=== PATIENT | male | born 1955 | race Caucasian/White ===

== ENCOUNTER 2025-01-06 18:02 | Emergency (ER) | payer MEDICARE, OTHER, SELFPAY ==
[2025-01-06 18:07] VITALS: BP 143/83
[2025-01-06 18:54] VITALS: BMI 24.9
[2025-01-06 19:00] LABS: % Basophils 0.5 % (0-2); % Eosinophils 1.4 % (0-6); % Lymphocytes 17.3 % (20.5-51.1); % Monocytes 7.4 % (1.7-9.3); % Neutrophils 72.4 % (42.2-75.2); Absolute Eosinophils 0.1 10^3/uL (0-0.7); Absolute Immature Granulocytes 0.1 10^3/uL (0-0.05); Absolute Lymphocytes 1.5 10^3/uL (1.2-3.4); Absolute Monocytes 0.6 10^3/uL (0.1-0.6); Absolute Neutrophils 6.3 10^3/uL (1.4-6.5); Hematocrit 25.4 % (39.0-52.0); Hemoglobin 9.1 g/dL (13.0-18.0); Mean Corp Hgb Conc. 35.8 g/dL (33.0-37.0); Mean Corpuscular Hgb 30.4 pg (27.0-31.0); Mean Corpuscular Volume 84.9 fL (80.0-94.0); Mean Platelet Volume 8.3 fL (7.4-10.4); Nucleated Red Blood Cells % 0 % (-); Platelet Count 315 10^3/uL (130-400); Red Blood Cell Count 2.99 10^6/uL (4.70-6.10); Red Cell Dist. Width 13.6 % (11.5-14.5); White Blood Cell Count 8.7 10^3/uL (4.8-10.8)
[2025-01-06 19:08] VITALS: BP 170/84
--- NOTE | 2025-01-06 19:13 | ED.GENMED ---
History of Present Illness
General
Chief Complaint: Weakness
Time Seen by Provider: 01/06/25 19:13
History of Present Illness
History of Present Illness:
TIME OF INITIAL EVALUATION
- 7:20 PM
REVIEW OF OLD RECORDS
- Patient has history of high blood pressure and hyperlipidemia. The patient had a visit for obstructive sleep apnea in January 2020 and had cardioversion for A-fib also in 2019.
Note:
CHIEF COMPLAINT(S)
Altered mental status.
HISTORY OF PRESENT ILLNESS
A male patient with a history of alcohol use reports experiencing altered mental status over the past two months, with a noted rapid decline in the last two weeks. According to sons that I spoke to at bedside, the patient has been consuming alcohol
despite a history of a significant familial loss. It was observed that the patient has been confused and recently experienced a fall. He reportedly attempted to quit alcohol consumption abruptly two weeks ago, though he still consumes occasionally.
Family members report that he was confused and had a history of falls, according to his neighbor. In the emergency department, the patient appears tired but is oriented to person, place, and time. He acknowledges feeling 'out of it.'
ADDITIONAL HISTORY OBTAINED FROM SOURCES OTHER THAN THE PATIENT
According to a family member, there was a rapid decline in the patients mental status over the last two weeks. The neighbor reported witnessing the patient falling.
PHYSICAL EXAM
- General: Patient appears lethargic, body odor noted.
- Extremities: Able to lift legs on command.
- General: Well appearing in no distress
- HEENT: Dry oral mucosa
- Cardiovascular: No murmurs, normal heart rate, regular rhythm, No chest wall tenderness
- Pulmonary: No respiratory distress, breath sounds are clear and equal
- Abdomen: Soft with no peritoneal signs, no tenderness
- Neurologic: Fair strength all extremities, no coordination deficits
- Psychiatric: Reasonable insight and judgement, he knows he is at [facility] and knows that his GI
- Extremities: Nontender, no edema, moves all extremities equally
- Skin: No rash, no lesions
SOCIAL DETERMINANTS AFFECTING HEALTH
The patient has a history of smoking but has not smoked recently, at least in the last several weeks.
PROBLEM LIST
- Acute: Altered mental status, falls, potential alcohol withdrawal.
- Chronic: Alcohol use disorder.
PLAN
Initiate intravenous fluids and review laboratory results upon availability. Replace potassium orally and also check magnesium and alcohol levels. Also check troponin as EKG is abnormal however the patient has no chest pain
DIFFERENTIAL DIAGNOSIS
The Differential Diagnosis includes, in no particular order and is not limited to:
- Alcohol withdrawal syndrome
- Delirium tremens
- Traumatic head injury
- Urinary tract infection
- Electrolyte imbalances
- Hepatic encephalopathy
- Wernickes encephalopathy
- Cerebrovascular accident
- Neurocognitive disorder due to substance use
- Metabolic encephalopathy
RADIOLOGY
- CT brain obtained shows no acute intracranial abnormality however new right nasal bone fracture is noted in comparison to 2019
EKG
- Sinus 109, LVH, new inferior Q waves with ST elevation
LABS
- Hemoglobin 9.1 down from 10.3 in 2020, white count normal, sodium slightly low at 130, potassium 3.2, magnesium slightly low at 1.5, troponin less than 0.012, alcohol undetected
UPDATE
- We did give his usual dose of oxcarbazepine while in the emergency department.
SUMMARY OF ENCOUNTER
The patient presented with altered mental status and a history of recent falls. He has a known history of alcohol use disorder. An EKG and cardiac blood work were performed with no significant findings. A CT scan of the brain showed no signs of
bleeding or critical issues. The patient showed improvement with intravenous fluids, suggesting possible dehydration. There was also noted swelling in the feet, potentially due to age-related venous insufficiency or immobility.
DISPOSITION
The patient is deemed suitable for discharge with outpatient follow-up advised.
EMERGENCY TREATMENTS ADMINISTERED
Intravenous fluids were administered.
PLAN
The patient was given intravenous fluids for possible dehydration. Recommendations were made for outpatient alcohol cessation support through a local program.
MEDICATION RECONCILIATION
Checked and confirmed zero alcohol content levels upon testing.
MEDICAL DECISION MAKING
1. Number & Complexity of Problems: Acute altered mental status suspected to be related to alcohol withdrawal or dehydration; no critical findings on brain imaging. Chronic alcohol use disorder affects care.
2. Data Reviewed: Category 1 - EKG, cardiac markers (negative for heart attack), brain CT (negative for bleeding).
3. Risk: Consideration was given to potential admission due to complexity, but outpatient management was deemed appropriate based on stable vitals, improvement with fluids, and the patients orientation and understanding of his medical situation.
DIAGNOSIS
Suspected dehydration and altered mental status potentially related to alcohol use disorder and withdrawal. Chronic alcohol use disorder.
PATHOLOGIES TO CONSIDER
- Alcohol withdrawal syndrome
- Traumatic head injury
- Electrolyte imbalances
I have asked Carlos GOODMAN, to evaluate the patient and he will come over shortly
Past History
Past History
ED Past Medical History: HTN, Hypercholesterolemia, Seizures, Other (Carotid stenosis) and Other (seizure)
ED Past Surgical History: Orthopedic
Social History
Tobacco: Non-smoker
Phy Exam
Physical Exam
Physical Exam:
See HPI
Course
Orders/Labs/Results
Orders:
Orders
01/06/25 18:10
Electrocardiogram (*1) Urgent
Reason for Study: Fatigue / Weakness
CT Head W/o Iv Contrast Urgent
Comment:
Reason For Exam: fall, headstrike, unknown thinners
01/06/25 18:11
EKG- Treatment ONCE
01/06/25 18:51
Alcohol Urgent
Complete Blood Count/With Diff Urgent
Comprehensive Metabolic Panel Urgent
Magnesium Urgent
Comment: ADD ON
01/06/25 19:30
Add On- LAB Urgent
Tests Added?: alcohol
01/06/25 19:32
Add On- LAB Urgent
Tests Added?: troponin
01/06/25 19:34
0.9% Sodium Chloride 1000 ml [Nss] 1,000 ml IV BOLUS
Potassium Chloride Powder [Klor-Con] 40 meq PO NOW STA
01/06/25 19:37
Add On- LAB Urgent
Tests Added?: magnesium
01/06/25 19:42
Troponin I Urgent
01/06/25 20:29
Oxcarbazepine [Trileptal] 600 mg PO NOW STA
Abnormal Lab Results
01/06/25
18:51
RBC 2.99 L 10^6/uL
(4.70-6.10)
Hgb 9.1 L g/dL
(13.0-18.0)
Hct 25.4 L %
(39.0-52.0)
Abs Immat Gran (auto) 0.1 H 10^3/uL
(0-0.05)
Immature Gran % 1.0 H %
(0-0.5)
Lymphocytes % 17.3 L %
(20.5-51.1)
Sodium 130 L mmol/L
(135-145)
Potassium 3.2 L mmol/L
(3.5-5.1)
Chloride 92 L mmol/L
(98-107)
Magnesium 1.5 L mg/dl
(1.6-2.3)
01/06/25 18:51
01/06/25 18:51
Vital Signs
Initial and Last Documented VS:
Initial Vital Signs
Temp Pulse Resp BP Pulse Ox
36.6 C 110 16 143/83 98
01/06/25 18:07 01/06/25 18:07 01/06/25 18:07 01/06/25 18:07 01/06/25 18:07
Last Documented Vital Signs
Temp Pulse Resp BP Pulse Ox
37.1 C 89 13 173/80 98
01/06/25 18:54 01/06/25 20:00 01/06/25 20:00 01/06/25 20:00 01/06/25 20:00
*Pulse Oximetry
SaO2: 100
Oxygen Mode of Delivery: Room air
Patient hypoxic: no
*Critical Care Note
Total Time (30-74mins, 75-104mins- exclusive of procedures): Not Applicable
ED Attending Note
-
Portions of this chart may have been created with voice recognition software.� Occasional wrong word or��sound alike� substitutions may have occurred due to the inherent limitations of voice recognition software.
Discharge Plan
Departure
Prescriptions:
No Action
aspirin 81 MG tablet,delayed release (DR/EC)
81 mg PO HS
spironolactone 25 MG tablet
25 mg PO DAILY
simvastatin 20 MG tablet
20 mg PO HS
oxcarbazepine 600 MG tablet
600 mg PO HS
terazosin 10 MG capsule
10 mg PO HS
oxcarbazepine 300 MG tablet
300 mg PO DAILY Qty: 60 0RF
amlodipine [Norvasc] 10 MG tablet
10 mg PO DAILY
losartan 50 MG tablet
50 mg PO HS
furosemide 40 mg Tablet
40 mg PO DAILY
clonidine HCl 0.1 mg Tablet
0.1 mg PO TID
carvedilol 12.5 mg Tablet
12.5 mg PO BID
Eliquis 5 mg Tablet
5 mg PO BID
Referrals:
UNKNOWN - PT DOES,NOT KNOW [Family Provider]
Interventions
Interventions:
*Risk Screen - Suicide Last Done: 01/06/25 19:05
*General Assessment Last Done: 01/06/25 19:05
*Neglect/Abuse Screening Last Done: 01/06/25 19:05
*ED- Fall Risk Assessment Last Done: 01/06/25 19:05
*ED COVID-19 Vaccine History Last Done: 01/06/25 19:05
ED- Cardiac Assessment Last Done: 01/06/25 19:05
ED- Neurological Assessment Last Done: 01/06/25 19:05
ED- Pulmonary Assessment Last Done: 01/06/25 19:05
Discharge Date and Time
Print Language: SAMOAN
--- NOTE | 2025-01-06 19:14 | PHANOTE ---
01/06/2025, pt. obtunded at time of interview; pt. manages his own meds.; sons at bedside do not know pt.'s meds.; ecw records and most of pharmacy records are outdated; could not confirm med. list.
[2025-01-06 19:23] LABS: ALT (SGPT) < 10 U/L (0-50); AST (SGOT) 18 U/L (17-59); Alkaline Phosphatase 113 U/L (38-126); Blood Urea Nitrogen 19 mg/dl (9-20); Calcium 9.1 mg/dl (8.4-10.2); Carbon Dioxide 22 mmol/L (22-30); Chloride 92 mmol/L (98-107); Estimated Creatinine Clearance 80 ml/min; Glucose 87 mg/dl (70-99); Potassium 3.2 mmol/L (3.5-5.1); Sodium 130 mmol/L (135-145); Total Bilirubin 0.9 mg/dl (0.2-1.3); Total Protein 6.9 g/dl (6.3-8.2); eGFR > 60.00
[2025-01-06] MEDS: KLOR-CON 40 MEQ PO (19:39)
[2025-01-06] MEDS: NSS 1000 IV (19:41)
[2025-01-06 19:44] LABS: Alcohol None Detected
[2025-01-06 19:50] LABS: Magnesium 1.5 mg/dl (1.6-2.3)
[2025-01-06 20:00] VITALS: BP 173/80
[2025-01-06 20:17] LABS: Troponin I < 0.012 ng/ml
[2025-01-06] MEDS: TRILEPTAL 600 MG PO (20:33)
[2025-01-06 21:00] VITALS: BP 154/97
== END 2025-01-06 22:00 | disposition home or self-care (01) ==
LOC: EMR 18:02
PROVIDERS: Emergency Medicine; EMERGENCY PHYSICIAN Emergency Medicine
DX: R53.1 Weakness (principal); E78.00 Pure hypercholesterolemia, unspecified; G47.33 Obstructive sleep apnea (adult) (pediatric); E87.8 Other disorders of electrolyte and fluid balance, not elsewhere classified; F10.239 Alcohol dependence with withdrawal, unspecified; I11.9 Hypertensive heart disease without heart failure; I48.91 Unspecified atrial fibrillation
CPT/HCPCS: 99284; 96360; 70450; 80053; 82077; 83735; 84484; 85025; 93005

== ENCOUNTER 2025-01-13 08:26 | Inpatient (IN) | payer MEDICARE, OTHER, SELFPAY ==
[2025-01-12] VITALS (12 sets, daily range): BP systolic 81–189; BP diastolic 41–123; BMI 23.1; BMI 21.7
[2025-01-12 09:12] LABS: % Basophils 0.4 % (0-2); % Eosinophils 1.2 % (0-6); % Immature Granulocytes 0.5 % (0-0.5); % Lymphocytes 16.9 % (20.5-51.1); % Monocytes 10.1 % (1.7-9.3); % Neutrophils 70.9 % (42.2-75.2); Absolute Eosinophils 0.1 10^3/uL (0-0.7); Absolute Immature Granulocytes 0.1 10^3/uL (0-0.05); Absolute Lymphocytes 1.6 10^3/uL (1.2-3.4); Absolute Neutrophils 6.8 10^3/uL (1.4-6.5); Hematocrit 25.8 % (39.0-52.0); Mean Corp Hgb Conc. 34.9 g/dL (33.0-37.0); Mean Corpuscular Hgb 29.3 pg (27.0-31.0); Mean Platelet Volume 8.8 fL (7.4-10.4); Nucleated Red Blood Cells % 0 % (-); Platelet Count 380 10^3/uL (130-400); Red Blood Cell Count 3.07 10^6/uL (4.70-6.10); Red Cell Dist. Width 13.7 % (11.5-14.5); White Blood Cell Count 9.6 10^3/uL (4.8-10.8)
[2025-01-12 09:28] LABS: ALT (SGPT) 11 U/L (0-50); AST (SGOT) 30 U/L (17-59); Albumin 3.5 g/dl (3.5-5.0); Alkaline Phosphatase 101 U/L (38-126); Blood Urea Nitrogen 11 mg/dl (9-20); Calcium 8.9 mg/dl (8.4-10.2); Carbon Dioxide 26 mmol/L (22-30); Chloride 95 mmol/L (98-107); Estimated Creatinine Clearance 105 ml/min; Glucose 96 mg/dl (70-99); Potassium 3.9 mmol/L (3.5-5.1); Sodium 128 mmol/L (135-145); Total Bilirubin 0.9 mg/dl (0.2-1.3); Total Protein 6.4 g/dl (6.3-8.2); eGFR > 60.00
[2025-01-12] MEDS: NSS 1000 IV (11:45)
[2025-01-12 11:53] LABS: Urine Albumin 2+ (Neg - Trace); Urine Bilirubin 1+ (Negative); Urine Character Clear (Clear); Urine Color Yellow; Urine Glucose Negative (Negative); Urine Ketone Negative (Negative); Urine Leukocyte 1+ (Negative); Urine Nitrite Negative (Negative); Urine Occult Blood Negative (Negative); Urine Urobilinogen 2+ (Neg - 1+)
[2025-01-12 12:03] LABS: Creatine Phosphokinase 53 U/L (55-170)
[2025-01-12 12:07] LABS: Alcohol None Detected
[2025-01-12 12:11] LABS: COVID-19 Antigen Negative (Negative)
[2025-01-12 12:15] LABS: Troponin I < 0.012 ng/ml
[2025-01-12 12:35] LABS: TSH Reflex To Free T4 3.01 uIU/ml (0.47-4.68)
[2025-01-12 12:36] LABS: Urine Red Blood Cell 0-2 /HPF (0-2); Urine Squamous Cell 0-2 /LPF (Few)
[2025-01-12 12:37] LABS: Urine Bacteria Few (Negative)
[2025-01-12 12:59] LABS: Amphetamines Negative (Negative); Barbiturates Negative (Negative); Benzodiazepines Negative (Negative); Buprenorphine Negative (Negative); Cocaine Negative (Negative); Marijuana Negative (Negative); Methadone Negative (Negative); Methamphetamines Negative (Negative); Opiates Negative (Negative); Phencyclidine Negative (Negative); Tricyclic Antidepressants Negative (Negative)
--- NOTE | 2025-01-12 13:10 | ED.GENMED ---
History of Present Illness
General
Chief Complaint: Weakness
Source: patient
Exam Limitations: none
Time Seen by Provider: 01/12/25 08:46
Nursing documentation reviewed up to this point in time: agreed with
History of Present Illness
History of Present Illness:
70-year-old male with a past medical history of seizures, hypertension, hyperlipidemia, carotid stenosis on Eliquis, alcohol use who presents to the ER with his family for evaluation of weakness and confusion. Per family, patient has had functional
decline over the past 3 weeks. He has had increasing weakness to the point that he can barely walk/get out of bed. They noticed that he is mildly confused. He has been so weak and bedbound that he has not been able to drive. He has not been
drinking alcohol for the past 2+ weeks because he ran out and cannot get to the store to replace it. Today he had a fall where he tripped on a chair and was too weak to get up and this was the final trigger that prompted family to bring him to the
ER for assessment. Regarding fall: Patient is not sure whether he hit his head during the fall. He denies any headache or neck pain he does complain of some mild pain in his mid back and left ribs. He complains of some mild right arm pain but was
able to move it well. Denies any significant pain in the hips. He denies any sternal pain or abdominal pain. Regarding symptoms prior to fall: Aside from feeling generally weak patient reports that he has had some increased frequency and dysuria;
no cough, shortness of breath, fever or any other acute complaints noted.
Past History
Past History
ED Past Medical History: HTN, Hypercholesterolemia, Seizures, Other (Carotid stenosis) and Other (seizure)
ED Past Surgical History: Orthopedic
Social History
Tobacco: Non-smoker
Review of Systems
Review of Systems
All Other Systems: ROS reviewed and negative except as documented in HPI and ROS
Constitutional: Reports fatigue; Denies fever
EENT: Denies runny nose
Respiratory: Denies cough or trouble breathing
Cardiac: Reports chest pain (Rib pain); Denies palpitations
ABD/GI: Denies abdominal pain, nausea, vomiting or diarrhea
Musculoskeletal: Reports muscle pain (Right upper arm pain) and back pain; Denies joint pain or neck pain
Neurological: Reports weakness (Generalized); Denies dizzy or headache
Phy Exam
Physical Exam
Physical Exam:
General: Awake, alert, oriented x3; no acute distress
Head: Normocephalic, atraumatic
Eyes: Conjunctiva normal, EOMI, pupils equal round and reactive to light bilaterally
Throat: Airway intact, handling secretions
Neck: Trachea midline, no cervical spine tenderness
Lungs: Clear to auscultation bilaterally, no wheezing, rales, rhonchi
Heart: Tachycardia with regular rhythm, no murmurs, gallops, or rubs; mild left chest wall tenderness; no sternal tenderness, no crepitus, no bruising
Abd: Soft, non distended, nontender
Back: No signs of trauma the back or flank, mild tenderness in the mid thoracic region but no spinal step-offs, no lumbar tenderness
Neuro: Cranial nerves grossly intact, speech fluid; mildly tremulous
Skin: no rash, no lacerations or abrasions
Extremities: No reproducible tenderness in the large joints of the upper or lower extremities and reasonable range of motion without pain in all large joints; he has minimal tenderness right upper arm but no bruising and good range of motion of the
shoulder and elbow; he does have some asymmetric edema in the legs with pitting edema around the right lower leg/ankle, no edema on the left
Scores
Heart Failure Risk
Heart Failure Risk Score: Not Applicable
Heart Score for Chest Pain Patients
STEMI patient?: Not applicable
Withdrawal Assessment of Alcohol
Withdrawal Assessment Completed?: Not applicable
Course
Orders/Labs/Results
Orders:
Orders
01/12/25 08:47
Electrocardiogram (*1) Urgent
Reason for Study: Tachycardia
01/12/25 08:48
EKG- Treatment ONCE
01/12/25 08:50
CBC/With Diff [Complete Blood Count/With Diff] Urgent
Comprehensive Metabolic Panel Urgent
01/12/25 09:[address] Cervical Spine W/o Iv Contr Urgent
Comment:
Reason For Exam: fall on blood thinners, weak, confused
CT Chest/abd/pel W Iv Cont Urgent
Comment:
Reason For Exam: right rib pain, abd pain, flank pain s/p fall
CT Head W/o Iv Contrast Urgent
Comment:
Reason For Exam: fall on blood thinners, weak, confused
01/12/25 09:29
US Periph Venous LOWER Ext RT Urgent
Comment:
Reason For Exam: Rle swelling
01/12/25 11:30
Alcohol Urgent
CPK [Creatine Phosphokinase] Urgent
Drug Screen, Urine [Urine Drug Abuse Screen] Urgent
Date Specimen was Collected: 01/12/25
Time Specimen was Collected: 11:27
TSH Reflex To Free T4 Urgent
Urinalysis Reflex To Culture Urgent
Date Specimen was Collected: 01/12/25
Time Specimen was Collected: 11:27
Urine Microscopic Reflex Cult Urgent
Urine Culture Urgent
TABBY Source: U
Specimen Description:
Date Specimen was Collected: 01/12/25
Time Specimen was Collected: 11:27
01/12/25 11:34
COVID-19 Antigen Urgent
Source: Nasal Swab
Troponin I Urgent
Influenza A+B Rapid Molecular Urgent
TABBY Source: Nasal Swab
Specimen Description:
01/12/25 11:43
0.9% Sodium Chloride 1000 ml [Nss] 1,000 ml IV BOLUS
01/12/25 11:45
Blood Culture Q30M
TABBY Source: Blood/Venous
Specimen Description:
01/12/25 12:15
Blood Culture Q30M
TABBY Source: Blood/Venous
Specimen Description:
01/12/25 13:05
CefTRIAXone [Rocephin] 1,000 mg IV NOW STA
01/12/25 13:21
Add On- LAB Urgent
Tests Added?: urine osml, urine sodium, urine pro/cr ratio
Abnormal Lab Results
01/12/25 01/12/25
08:50 11:30
RBC 3.07 L 10^6/uL
(4.70-6.10)
Hgb 9.0 L g/dL
(13.0-18.0)
Hct 25.8 L %
(39.0-52.0)
Abs Immat Gran (auto) 0.1 H 10^3/uL
(0-0.05)
Absolute Neuts (auto) 6.8 H 10^3/uL
(1.4-6.5)
Absolute Monos (auto) 1.0 H 10^3/uL
(0.1-0.6)
Lymphocytes % 16.9 L %
(20.5-51.1)
Monocytes % 10.1 H %
(1.7-9.3)
Sodium 128 L mmol/L
(135-145)
Chloride 95 L mmol/L
(98-107)
Creatinine 0.6 L mg/dL
(0.7-1.3)
Creatine Kinase 53 L U/L
(55-170)
Urine Bilirubin 1+ A
(Negative)
Urine Urobilinogen 2+ A
(Neg - 1+)
Leukocyte Esterase Rfl 1+ A
(Negative)
Urine Bacteria (Reflex) Few A
(Negative)
Urine Albumin (Reflex) 2+ A
(Neg - Trace)
01/12/25 08:50
01/12/25 08:50
Vital Signs
Initial and Last Documented VS:
Initial Vital Signs
Temp Pulse Resp BP Pulse Ox
36.6 C 111 20 146/81 99
01/12/25 08:20 01/12/25 08:20 01/12/25 08:20 01/12/25 08:20 01/12/25 08:20
Last Documented Vital Signs
Temp Pulse Resp BP Pulse Ox
36.6 C 98 14 189/78 97
01/12/25 08:20 01/12/25 12:00 01/12/25 12:00 01/12/25 12:00 01/12/25 13:21
MDM/Problems Addressed
Differential Diagnosis Includes:
Fall: Evaluate for rib fractures, traumatic head injury given he is on blood thinners, cervical spine injury, vertebral fracture, retroperitoneal hemorrhage
Weakness: Anemia, electrolyte derangement, infection including UTI or pneumonia, polypharmacy, deconditioning, alcohol withdrawal
MDM/Problems Addressed:
70-year-old male presents for evaluation of generalized weakness progressive over the past few weeks, today with a fall as described above. Vitals and exam as above. Will place an IV check labs including CBC and CMP, CPK. Check thyroid studies.
Check urinalysis. Check UDS and alcohol level. Send viral swabs. Regarding fall, will check CT head and cervical spine given he is on blood thinners. Will check CT of the chest�abdomen/pelvis to rule out rib fractures, retroperitoneal/flank
bleed, vertebral fractures. He does have some pain in the upper arm but minimally tender and moving it well�very low suspicion for fracture hold off on x-ray. He has some asymmetric edema in the legs�denies leg pain but given his asymmetry and
reported decreased activity level will check DVT study. Regarding alcohol use�he reports it is been 3-week since his last drink. While he is mildly tremulous and was tachycardic in triage his heart rate has normalized by my assessment. He is not
diaphoretic. No nausea or vomiting, headache. At this point I have low suspicion that he is in acute alcohol withdrawal. Will monitor closely reassess after the above.
Labs reviewed: CBC shows stable anemia with a hemoglobin of 9. His CMP shows hyponatremia to 128�slightly lower than prior. His TSH is normal. His urinalysis is positive for leukocyte esterase, few bacteria no pyuria on micro analysis but he is
having symptoms of UTI; he had bladder wall thickening on CT and I we will plan to send urine culture and treat for urinary tract infection given these findings. No other significant acute findings on imaging�CT head and cervical spine negative for
any acute posttraumatic pathology and CT chest/abdomen/pelvis showed likely cystitis. No other acute abnormalities�there was a question of sternal fracture versus motion artifact; patient has no sternal tenderness and no report of pain
subjectively, suspect that this is a motion artifact. He did have incidental finding of coronary artery calcifications on CT�he is having rib pain but no chest pain, cardiac enzymes undetectable. Can be followed outpatient. Will plan to cover
with antibiotics, provide some fluids I suspect hypovolemic hyponatremia. Admit for continued management. Case discussed with hospitalist.
Chronic conditions affecting care:
Alcohol use
*Pulse Oximetry
SaO2: 97
Oxygen Mode of Delivery: Room air
Patient hypoxic: no (97%)
*EKG
Interpreted by ED Provider?: Yes
Heart Rate: 103
Rate: tachycardiac
Rhythm: sinus and sinus tachycardia
[place]: normal axis
Interval: first degree heart block
QRS Pattern: normal QRS
Ischemia: other (Septal infarct age indeterminant)
*Critical Care Note
Total Time (30-74mins, 75-104mins- exclusive of procedures): Not Applicable
Data Reviewed
Review of Other/Old Records Reveals: Labs and Records
Source: patient, records and family
Patient Management
Discussion with other providers: Hospitalist (Discussed with hospitalist)
Escalation/DeEscalation of care consider admission/obs:
Admission indicated
ED Attending Note
-
Portions of this chart may have been created with voice recognition software.� Occasional wrong word or��sound alike� substitutions may have occurred due to the inherent limitations of voice recognition software.
Discharge Plan
Departure
Prescriptions:
No Action
aspirin 81 MG tablet,delayed release (DR/EC)
81 mg PO HS
spironolactone 25 MG tablet
25 mg PO DAILY
simvastatin 20 MG tablet
20 mg PO HS
oxcarbazepine 600 MG tablet
600 mg PO HS
terazosin 10 MG capsule
10 mg PO HS
oxcarbazepine 300 MG tablet
300 mg PO DAILY Qty: 60 0RF
amlodipine [Norvasc] 10 MG tablet
10 mg PO DAILY
losartan 50 MG tablet
50 mg PO HS
furosemide 40 mg Tablet
40 mg PO DAILY
clonidine HCl 0.1 mg Tablet
0.1 mg PO TID
carvedilol 12.5 mg Tablet
12.5 mg PO BID
Eliquis 5 mg Tablet
5 mg PO BID
Referrals:
NONE,* [Family Provider, Internal Medicine]
Interventions
Interventions:
*Risk Screen - Suicide Last Done: 01/12/25 08:30
*General Assessment Last Done: 01/12/25 08:30
*Neglect/Abuse Screening Last Done: 01/12/25 08:30
*ED- Fall Risk Assessment Last Done: 01/12/25 08:30
*ED COVID-19 Vaccine History Last Done: 01/12/25 08:30
ED- Cardiac Assessment Last Done: 01/12/25 08:47
ED- Neurological Assessment Last Done: 01/12/25 08:30
ED- Pulmonary Assessment Last Done: 01/12/25 08:30
Discharge Date and Time
Print Language: [place]
--- NOTE | 2025-01-12 13:10 | HPS.HSE ---
Family Physician
-
Family Physician: * NONE
Chief Complaint
-
frequent falls
generalized weakness
History of Present Illness
70-year-old male with a past medical history of seizures, hypertension, hyperlipidemia, carotid stenosis on Eliquis, alcohol use who presents to the ER with his family for evaluation of weakness and confusion. up until a month ago, patient was
driving but for past few weeks patient is progressively declining, he is not able to drive. he is very weak, off balance. he had frequent fall. his last fall was three days ago. denied hitting head on the floor. he is complaining of generalized
achiness and chills. He has had increasing weakness to the point that he can barely walk/get out of bed. patient was also noted to have poor appetite. They noticed that he is mildly confused.He has not been drinking alcohol for the past 2+ weeks
because he ran out and cannot get to the store to replace it. Patient denied any headache, dizziness or syncope. Patient denied any fever, chest pain, short of breath. Patient denied any abdominal pain, nausea, vomiting or diarrhea. Patient
denied dysuria,hematuria.
ER work up negative for acute findings. admitting for further management. Stated dose of ceftriaxone in the ER for concern of UTI. Patient received normal saline x 1 bag. Blood culture sent from ER. Admitted for further management
Medical History
Past Medical History
Past Medical History: Reports Other
Additional Past Medical History:
Cervical radiculopathy
Anemia
Hyponatremia
Epilepsy
Carotid artery artery sclerosis
DDD
Prior A-fib
BPH
PROCTOR
- Hypertension
Past Surgical History: Reports Other
Additional Past Surgical History:
Tonsillectomy
Right RTC repair
Right carotid endarterectomy with angioplasty
Social History
Tobacco: Non-smoker
Alcohol: Chronic Alcoholic
Drug: Marijuana
Personal: Single
Living: Alone
Family History
Family History: Not pertinent
Allergies / Home Medications
Allergies reflects when Allergies were last updated in [employer].
Home Medications with original date entered in [employer]
Allergy/Medication List:
Allergies
Allergy/AdvReac Type Severity Reaction Status Date / Time
hydrochlorothiazide Allergy headache Verified 01/06/25 20:28
lisinopril Allergy COUGH Verified 01/06/25 18:11
pollen extracts Allergy sneezing/runny Verified 01/06/25 18:11
nose
Home Medications
aspirin 81 mg tablet,delayed release 81 mg PO HS 08/04/19
oxcarbazepine 600 mg tablet 600 mg PO HS 08/04/19
simvastatin 20 mg tablet 20 mg PO HS 08/04/19
spironolactone 25 mg tablet 25 mg PO DAILY 08/04/19
terazosin 10 mg capsule 10 mg PO HS 08/04/19
oxcarbazepine 300 mg tablet 300 mg PO DAILY #60 tabs 08/14/19
amlodipine 10 mg tablet (Norvasc) 10 mg PO DAILY 03/31/20
losartan 50 mg tablet 50 mg PO HS 03/31/20
apixaban 5 mg tablet (Eliquis) 5 mg PO BID 01/06/25
carvedilol 12.5 mg tablet 12.5 mg PO BID 01/06/25
clonidine HCl 0.1 mg tablet 0.1 mg PO TID 01/06/25
furosemide 40 mg tablet 40 mg PO DAILY 01/06/25
Review of Systems
-
Constitutional: Reports Fatigue and Chills
EENT: Reports No Symptoms
Respiratory: Reports No Symptoms
Cardiac: Reports No Symptoms
Abdomen/GI: Reports No Symptoms
: Reports No Symptoms
Musculoskeletal: Reports No Symptoms
Skin: Reports No Symptoms
Neurological: Reports Weakness
Endocrine: Reports No Symptoms
Hematologic/Lymphatic: Reports No Symptoms
Psych: Reports No Symptoms
Physical Exam
Vital Signs
Vital Signs
Temp Pulse Resp BP Pulse Ox
98 F 98 14 189/78 97
01/12/25 08:20 01/12/25 12:00 01/12/25 12:00 01/12/25 12:00 01/12/25 12:00
Physical Exam
General: Well Developed, Well Nourished and No Apparent Distress
HEENT: NormoCephalic, Moist mucous membranes and Atraumatic
Respiratory: Clear
Cardiac: S1/S2 and Regular Rhythm; No Murmur or Rub
GI: Soft, Non Tender, Non Distended and Normal Bowel Sounds; No Organomegaly
Rectal: Deferred by Provider
Musculoskeletal: No Clubbing, No Cyanosis and Other (b/l LE edema)
Skin: No Rash
Neuro: AO x 3 and Nonfocal/grossly intact
Psych: Calm
Laboratory Results
-
01/12/25 08:50
01/12/25 08:50
Laboratory Results
Total Bilirubin 0.9 mg/dl (0.2-1.3) 01/12/25 08:50
AST 30 U/L (17-59) 01/12/25 08:50
ALT 11 U/L (0-50) 01/12/25 08:50
Alkaline Phosphatase 101 U/L (38-126) 01/12/25 08:50
Troponin I < 0.012 ng/ml 01/12/25 11:34
Data Reviewed
-
CT Scan: Report Reviewed by me
Ultrasound: Report Reviewed by me
Impression/Plan
-
# Acute on chronic hyponatremia likely dehydration
- Sodium 128
- Received normal saline in ER
- BMP in a.m.
-fluid restriction
#hxt of alcoholism
-not drinking for two weeks
-ctm
-alcohol protocol
# Fall /loss of balance unclear cause
- Head CT with no acute finding
- Chest abdomen pelvis CT with impression of Dense coronary artery calcifications are present. Please correlate with symptoms of and risk factors for coronary artery disease, with further workup as clinically appropriate.Significant diffuse vascular
calcification. No evidence for thoracic or abdominal aortic aneurysm.Best seen on sagittal images, subtle discontinuity of the anterior and posterior cortical margins of the mid to inferior sternal body. This suggests a subtle nondisplaced fracture,
although could be from motion artifact. Please correlate clinically.Bladder is not fully distended. However, the bladder wall appears thickened and there is stranding of the fat surrounding the bladder. Findings are suggestive of cystitis, and
please correlate clinically.No evidence for bowel obstruction. No evidence for free intraperitoneal air.Small amount of presacral edema, nonspecific.
- Cervical spine CT with no evidence of acute fracture or dislocation
- PT/OT consult
# Anemia of chronic disease
- Hemoglobin stable at 9.0
- No active bleeding
- Continue to monitor
# Essential hypertension
# Hyperlipidemia
# Coronary artery disease history for endarterectomy
-statin and asa continued
-spironolactone,Lasix,Norvasc and clonidine continued
#paroxysmal atrial fib
-sinus tachy with 1st degree AV block
-coreg and eliquis continued
# Seizure history
-oxcarbazepine continued
#DVT prophylaxis
-eliquis
#patient in non compliant with medication.
#. He is full code status.
--- NOTE | 2025-01-12 13:44 | W.PN.UPDATE ---
Update Note
Progress Note Update
I could not get any information from the patient as
Information gathered by chart review and speaking with the ER staff.
This note serves as an addendum to the H&P by spectrograph operator YAYA
[place] STAHL
HPI
70-year-old male with a past medical history of seizures, hypertension, hyperlipidemia, carotid stenosis on Eliquis, alcohol use who presents to the ER
- BIB family for evaluation of weakness and confusion.
- functional decline over the past 3 weeks.
- today , fall where he tripped on a chair - not sure whether he hit his head during the fal
- increased frequency and dysuria
- no cough, shortness of breath, fever o
PHX
Relevant VS:
Vital Signs
Temp Pulse Resp BP Pulse Ox
98.7 F 98 14 189/78 97
01/12/25 13:34 01/12/25 12:00 01/12/25 12:00 01/12/25 12:00 01/12/25 13:21
PE
Gen: no acute distress
Lungs: Clear to auscultation bilaterally
Cor:Tachycardia with regular rhythm, no murmurs
Abdomen: Soft, non distended, nontender
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
MS: No reproducible tenderness in the large joints of the upper or lower extremities
Laboratory Tests
01/06/25 01/12/25
18:51 08:50
WBC 9.6
Hgb 9.1 L 9.0 L
Sodium 130 L 128 L
Potassium 3.2 L 3.9
Chloride 92 L 95 L
Creatinine 0.6 L
US JOSIAH; No DVT
HCT; No evidence of acute intracranial abnormality.
ASSESSMENT & PLAN
Pending Rx reconciliation
Weakness and Fall without obvious injury - NEH HCT
Confusion
Hyponatremia - acute on chronic ? due to ETOH Liver dz
Dehydration - s/p 1 L NS
- s/p 1 L NS at ER then FR 48 Fl Oz
- Trend Na
HX chronic ETOH use disorder; stop ETOH for 2 weeks
- at risk ETOH WD protocol
- falls precaution
In NSR -HX Prx AF on Coreg and Eliquis
Essential HTN on Coreg, on spironolactone, lasix ,Norvasc and clonidine
Hyperlipidemia on statin
CAD HX on ASA and statin
HX endarterectomy
DVT Px: Eliquis
Code: Full code
OBS MS
[2025-01-12] MEDS: ROCEPHIN 1000 MG IV (13:59)
--- NOTE | 2025-01-12 14:09 | PHANOTE ---
med rec note- patient family stated he has not taking his medication in weeks,. also stated he stopped his Eliquis. ecw is not current and appointment are from 2023, [facility] only has Lasix, Coreg, spironolactone and oxcarbazepine being filled
nothing else currently
[2025-01-12 14:23] LABS: Osmolality Urine 337 mOsm/kg (300-900)
[2025-01-12 15:01] LABS: Protein/creatinine Ratio 0.1; Urine Protein 10 mg/dl; Urine Sodium 49 mmol/L (30-90)
[2025-01-12] MEDS: CATAPRES 0.1 MG PO ×2 (17:44→21:38)
[2025-01-12 17:56] LABS: INR 1.23; PT 15.8 Sec (11.4-14.6)
[2025-01-12 17:58] LABS: GGTP 48 U/L (15-73); Phosphorus 3.4 mg/dl (2.5-4.5)
[2025-01-12 17:59] LABS: Alcohol None Detected
--- NOTE | 2025-01-12 18:34 | PTCARENOTE ---
Addendum entered by Norah Peña RN 01/12/25 19:03:
pt reports 40lb weight loss and decreased vale
pt notes chronic R ankle swelling from sprain. positive pulses
Addendum entered by Norah Peña RN 01/12/25 18:45:
pt arrived to unit at 16:45
Original Note:
pt arrived to unit at ___ via stretcher form ED. pt pulled over to bed. pt hr 110, other VSS. this nurse completed admissions questions at the bedside with pt and pt son. assessment completed by this nurse. regular diet order in non par called for pt
pt son notes that pt used alcohol heavily but quit cold turkey 3 weeks ago. since then pt has had increased ambulatory dysfunction noted by pt neighbor and family. pt and pt son state that pt has not had BM in 2-3 weeks. pt unable to state normal
bowel routine. pt notes that his uirne was brown for the last week and a half but today it has been yellow.
pt son notes that the pt's girlfriend, mother and brother have within the last year and that had influence on pt drinking/possible depression
[2025-01-12] MEDS: THIAMINE INJECTION 200 MG IV (21:35)
[2025-01-12] MEDS: ELIQUIS 5 MG PO (21:35)
[2025-01-12] MEDS: COREG 12.5 MG PO (21:35)
[2025-01-12] MEDS: ASPIR LOW (ENTERIC COATED) 81 MG PO (21:37)
[2025-01-12] MEDS: TRILEPTAL 600 MG PO (21:38)
[2025-01-13] VITALS (7 sets, daily range): BP systolic 108–152; BP diastolic 55–78; BMI 21.7
[2025-01-13 06:35] LABS: Hematocrit 19.3 % (39.0-52.0); Hemoglobin 6.8 g/dL (13.0-18.0); Mean Corp Hgb Conc. 35.2 g/dL (33.0-37.0); Mean Corpuscular Hgb 29.7 pg (27.0-31.0); Mean Corpuscular Volume 84.3 fL (80.0-94.0); Mean Platelet Volume 8.4 fL (7.4-10.4); Platelet Count 299 10^3/uL (130-400); Red Blood Cell Count 2.29 10^6/uL (4.70-6.10); Red Cell Dist. Width 14.2 % (11.5-14.5); White Blood Cell Count 7.7 10^3/uL (4.8-10.8)
--- NOTE | 2025-01-13 06:47 | PTCARENOTE ---
Pt had critical lab w/ Hgb from 9.0 to 6.8 this AM. LITIGATION SECRETARY notified, another HH ordered. Pt BP 108/56. Pt asymptomatic, no complaints.
--- NOTE | 2025-01-13 06:50 | W.PN.UPDATE ---
Update Note
Progress Note Update
hgb level this am is 6.8 previously is 9. No signs of bleeding and no neuro changes reported by the nursing staff. BP 108/56, hr 92.
Patient received 1 L of NSS in ER, could be dilutional drop/ inaccurate result??
Will repeat hgb to confirm.
[2025-01-13 06:51] LABS: Blood Urea Nitrogen 12 mg/dl (9-20); Calcium 7.8 mg/dl (8.4-10.2); Carbon Dioxide 25 mmol/L (22-30); Chloride 100 mmol/L (98-107); Estimated Creatinine Clearance 86 ml/min; Glucose 92 mg/dl (70-99); Potassium 3.7 mmol/L (3.5-5.1); Sodium 128 mmol/L (135-145); eGFR > 60.00
[2025-01-13 07:07] LABS: Hematocrit 19.7 % (39.0-52.0); Hemoglobin 6.9 g/dL (13.0-18.0)
[2025-01-13] MEDS: TRILEPTAL 300 MG PO (08:01)
[2025-01-13] MEDS: THIAMINE INJECTION 200 MG IV ×2 (08:01→21:01)
[2025-01-13] MEDS: FOLVITE 1 MG PO (08:01)
[2025-01-13] MEDS: SENOKOT-S 1 TABLET PO (08:02)
[2025-01-13] MEDS: FLUSH (NSS) 2 FLUSH IV (08:03)
--- NOTE | 2025-01-13 08:16 | W.PN.HOSP.TC ---
Today's Communication/Plan
-
X-ray of the sternum
MRI of the brain
GI evaluation
Transfuse 1 unit of blood
Assessment / Plan
Assessment / Plan
70-year-old male presented with generalized weakness and falls he has been progressively declining.Patient usually drinks a lot of alcohol but has not been drinking for the past 2 weeks because he ran out and could not go to the store to replace it.
Patient also states that he has had intermittent black stools and no bowel movements for the past few days. Patient admitted that he has not been taking Eliquis for the past month.
Doppler lower extremity-no evidence of DVT of the right lower extremity
Head CT-no evidence of acute intracranial abnormality
CT chest abdomen pelvis-dense coronary artery calcifications. Significant diffuse vascular calcification. Subtle nondisplaced fracture versus artifact sternum. Thickened bladder and there is stranding of the fat surrounding the bladder findings
suggestive of cystitis. No bowel obstruction or free air. Small amount of presacral edema nonspecific.
EKG-sinus tachycardia nonspecific ST-T changes
On examination awake alert
Pleasant
Cardiovascular system S1-S2 appreciated
Chest clear to auscultation
Abdomen soft and mild epigastric tenderness
No pedal edema
# Acute anemia
Unclear cause
Possible subacute blood loss from GI bleed given off-and-on melena
Heme test stools
Type and crossmatch and transfuse 1 unit of blood
Informed blood consent obtained from patient-I also discussed this with patient's son Artur
Check iron studies and B12
# Acute on chronic hyponatremia
Check serum and urine osmolality and urine sodium
# Fall/loss of balance of unclear cause-noncompliance with Eliquis. Check MRI of the brain.
Check B12 and cortisol level
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
# Hypomagnesemia-replace
# Alcoholism-has not had a drink for 2 weeks
Replace thiamine
# Hypertension-hold Norvasc, clonidine, Aldactone. Continue Coreg with Parameters.
# Hyperlipidemia-Unclear why patient is not on a statin.
# Coronary artery calcification-needs outpatient follow-up. Consintu ASA. Unclear why patient is not on a statin.
# History of carotid artery with carotid endarterectomy right side
# Subtle nondisplaced fracture versus artifact in the sternum-check x-rays
# Paroxysmal atrial fibrillation-hold Eliquis with bleeding. Continue Coreg with parameters at a decreased dose
# Seizure-continue oxcarbazepine
# History of stroke-hold Eliquis. Unclear why patient is not on statin
# History of right hepatic abscess 2019
# Noncompliance with medicines
# Ex-smoker
# Daily alcohol use-has not used for the past 2 weeks. Thiamine replacement
# DVT prophylaxis-SCDs
# Full code
Discussed with nursing
Son Artur ferrera.
Time pent over 50 min
Part of this note was created using voice recognition system. Occasional wrong word or��sound alike� substitutions may have inadvertently occurred due to the inherent limitations of voice recognition software. If noted kindly bring it to my
attention for correction.
Anticipated Discharge: 24 - 48 hours
Subjective/Interval History
-
Date of Service: January 13, 2025
Objective Data
-
Labs:
Laboratory Results
01/13/25 01/13/25
05:59 06:48
WBC 7.7
Hgb 6.8 L* D 6.9 L*
Hct 19.3 L* 19.7 L*
Plt Count 299 D
Sodium 128 L
Potassium 3.7
Chloride 100
Carbon Dioxide 25
BUN 12
Creatinine 0.7
Glucose 92
Calcium 7.8 L
Vital Signs:
Vital Signs
Temp Pulse Resp BP Pulse Ox
98.5 F 82 19 110/70 95
01/13/25 07:00 01/13/25 07:00 01/13/25 07:00 01/13/25 07:00 01/13/25 07:00
I&O
01/12/25 01/13/25 01/14/25
06:59 06:59 06:59
Intake Total 600 / 600
Output Total 200 / 200
Balance 400 / 400
[2025-01-13] MEDS: MAGNESIUM SULFATE 50 IV (09:47)
[2025-01-13 10:26] LABS: Iron 36 ug/dl (49-181); LDH 130 U/L (120-246); Magnesium 1.1 mg/dl (1.6-2.3)
[2025-01-13 10:35] LABS: Percent Saturation 23 % (20-50); Total Iron Binding Capacity 156 ug/dl (261-462)
--- NOTE | 2025-01-13 10:37 | CON.GI ---
Addendum entered and electronically signed by Nidhi Bullard Do, MD 01/13/25 12:59:
I saw and examined the patient.
The CLIENT SUPPORT ASSOCIATE's note was reviewed and I agree with the note.
Comment: Leonardo is a 70yo M with h/o afib on eliquis, PROCTOR and chronic alcoholism who presents for weakness and confusion. His mother, brother and significant other all passed in the past year and that drove him to drink more ETOH. His last drink
was 3wks ago b/c he was too weak to buy more. He denies seeing red or black blood in stools. Reports no BM in the past 1wk but not eating much. He lives alone. He denies AC or nsaid use. Does not know his last dose of eliquis. Denies abd
pain, nausea/vomiting or dysphagia. Vitals stable, NTTP, NABS pale appearing poor dentition. Labs reviewed consistent with iron def anemia with anemia of chronic disease.
Impression
- Chronic anemia
with iron deficiency dating back to 07/2019 ddx includes occult malignancy, ectasia or PUD
- Alcoholism
- Weakness/deconditioning
- HTN
- Seizure
- SIADH
- PROCTOR
- Afib on eliquis
Recommendation
- CLD, NPO at [place] for EGD/colon tomorrow after eliquis washout
- Start bowel prep today jame
- IV iron
- Blood transfusion today
- Serial H/H
- IV access
- C/w protonix 40mg IV BID
Will follow with you
Original Note:
Consultation
-
Date/Time Consultation Requested: 01/13/25 0854
Date/Time Consultation Performed: 01/13/25 1010
Requesting Provider: Dr. Arthur
Performing Provider: Dr. Harley/AMBER Clark
Reason for Consultation: anemia, recent melena
Medical History
Chief Complaint / HPI
Chief Complaint: falls, weakness
History of Present Illness:
70-year-old male with past medical history of seizures, hypertension, carotid stenosis, hyperlipidemia hyponatremia, carotid artery stenosis, A-fib on Eliquis, BPH, PROCTOR, cervical radiculopathy, right carotid endarterectomy, SIADH, DDD, right
hepatic abscess (2019), KEENAN (dx 07/2019), chronic alcoholism who has not been taking his medication regularly presents to the emergency room for evaluation of weakness and confusion. Patient is a poor historian. He states that he has not been
taking care of himself. He states that he has not been eating and drinking well. He also stopped drinking alcohol because he 'ran out'. He does have a significant history of alcohol abuse drinking up to a pint of vodka a day. He states that he
'has not been consistent with my medications'. We did see him in 07/2019 when he had hepatic abscess with drain placed. He was found to have iron deficiency at that time as well. Per review of records patient was to follow up with GI as an
outpatient. He does tell me that he did not follow up with any GI after. He does state that he has been having significant depression associated with the of his mother, brother and his significant other 'Isabella'. The patient states that his
bowel movements could be black at times. We are asked to evaluate for anemia and intermittent episodes of melena. At the present time the patient's hemoglobin is 6.9 down from 9.0. He denies any fevers, chills, nausea, vomiting, hematochezia,
dysphagia or odynophagia. He does not have any appetite. He states that he has not been eating or drinking or taking care of himself. He denies any abdominal pain. His was given a dose of Eliquis on 01/12/2025 at 9:30 PM.
Past Medical History
Past Medical History: Other (seizures, hypertension, aortic regurgitation, carotid stenosis, hyperlipidemia hyponatremia, A-fib, BPH, PROCTOR, cervical radiculopathy, chronic alcoholism, right hepatic abscess (07/2019), KEENAN (07/2019))
Past Surgical History: Other (Tonsillectomy, Right RTC repair, Right carotid endarterectomy with angioplasty, cardioversion)
Social History
Tobacco: Former Smoker
Alcohol: Daily
Drug: Marijuana
Personal: Single
Living: Alone
Family History
Family History: Other (Denies any family hx of GI malignancy or IBD. )
Allergies / Home Medications
Allergy/AdvReac Type Severity Reaction Status Date / Time
hydrochlorothiazide Allergy headache Verified 01/06/25 20:28
lisinopril Allergy COUGH Verified 01/06/25 18:11
pollen extracts Allergy sneezing/runny Verified 01/06/25 18:11
nose
�Medication �Instructions �Recorded
oxcarbazepine 600 mg tablet 600 mg PO HS Antiseizure Agent 08/04/19
spironolactone 25 mg tablet 25 mg PO DAILY Fluid 08/04/19
Retention/Swelling
oxcarbazepine 300 mg tablet 300 mg PO DAILY #60 tabs 08/14/19
amlodipine 10 mg tablet (Norvasc) 10 mg PO DAILY Blood Pressure 03/31/20
carvedilol 12.5 mg tablet 12.5 mg PO BID Blood Pressure 01/06/25
clonidine HCl 0.1 mg tablet 0.1 mg PO TID Blood Pressure 01/06/25
furosemide 40 mg tablet 20 mg PO DAILY Fluid 01/06/25
Retention/Swelling
apixaban 5 mg tablet (Eliquis) 5 mg PO BID Blood Clot 01/12/25
Prevention/Tx
coQ10 (ubiquinol) 100 mg capsule 100 mg PO DAILY Supplement 01/12/25
Review of Systems
-
All other systems: A 12 pt ROS was Negative except as stated above in HPI
Vital Signs
Temp Pulse Resp BP Pulse Ox
98.5 F 82 19 110/70 95
01/13/25 07:00 01/13/25 07:00 01/13/25 07:00 01/13/25 07:00 01/13/25 07:00
Physical Exam
Exam
General: No Apparent Distress
HEENT: Anicteric
Respiratory: Clear (anterior)
Cardiac: Regular Rhythm
GI: Soft, Non Tender, Non Distended and Normal Bowel Sounds
Skin: Warm and Dry
Neuro: Awake, Alert and Oriented (poor historian)
Psych: Calm
Results
WBC 7.7 10^3/uL (4.8-10.8) 01/13/25 05:59
Hgb 6.9 g/dL (13.0-18.0) L* 01/13/25 06:48
Hct 19.7 % (39.0-52.0) L* 01/13/25 06:48
MCV 84.3 fL (80.0-94.0) 01/13/25 05:59
Plt Count 299 10^3/uL (130-400) D 01/13/25 05:59
Absolute Neuts (auto) 6.8 10^3/uL (1.4-6.5) H 01/12/25 08:50
PT 15.8 Sec (11.4-14.6) H 01/12/25 17:32
INR 1.23 01/12/25 17:32
APTT 42.0 Sec (23.4-35.0) H 01/12/25 17:32
Sodium 128 mmol/L (135-145) L 01/13/25 05:59
Potassium 3.7 mmol/L (3.5-5.1) 01/13/25 05:59
Chloride 100 mmol/L (98-107) 01/13/25 05:59
Carbon Dioxide 25 mmol/L (22-30) 01/13/25 05:59
BUN 12 mg/dl (9-20) 01/13/25 05:59
Creatinine 0.7 mg/dL (0.7-1.3) 01/13/25 05:59
Calcium 7.8 mg/dl (8.4-10.2) L 01/13/25 05:59
Total Bilirubin 0.9 mg/dl (0.2-1.3) 01/12/25 08:50
AST 30 U/L (17-59) 01/12/25 08:50
ALT 11 U/L (0-50) 01/12/25 08:50
Alkaline Phosphatase 101 U/L (38-126) 01/12/25 08:50
Diagnostic Image Results:
CT Chest Abd/Pelvis with IV cont:
IMPRESSION: Dense coronary artery calcifications are present. Please correlate with symptoms of and risk factors for coronary artery disease, with further workup as clinically appropriate.
Significant diffuse vascular calcification. No evidence for thoracic or abdominal aortic aneurysm.
Best seen on sagittal images, subtle discontinuity of the anterior and posterior cortical margins of the mid to inferior sternal body. This suggests a subtle nondisplaced fracture, although could be from motion artifact. Please correlate clinically.
Bladder is not fully distended. However, the bladder wall appears thickened and there is stranding of the fat surrounding the bladder. Findings are suggestive of cystitis, and please correlate clinically.
No evidence for bowel obstruction. No evidence for free intraperitoneal air.
Small amount of presacral edema, nonspecific.
Prior GI Procedures:
EGD: never
Colonoscopy: Per patient 'Over 10 years ago' does not recall where and results.
--> Per our prior consult in 2019 patient stated at that time he had a hx of colon polyps and colonoscopy was greater then 5 years ago in 2019.
Assessment / Plan
-
70-year-old male with past medical history of seizures, hypertension, carotid stenosis, hyperlipidemia hyponatremia, carotid artery stenosis, A-fib on Eliquis, BPH, PROCTOR, cervical radiculopathy, right carotid endarterectomy, SIADH, DDD, right
hepatic abscess (2019), KEENAN (dx 07/2019), chronic alcoholism who has not been taking his medication regularly presents to the emergency room for evaluation of weakness and confusion. Asked to see patient for Hgb of 6.9 down from 9.0 with reports of
melena in past given patient hx of ETOH abuse. Patient has 'not been consistent' with his medications at home. Patient is poor historian. He did get dose of Eliquis last night at 9:30 pm. No BM yet here.
Impression:
Anemia, acute on chronic with reports of recent melena.
--> KEENAN in 2019, patient did not have GI work up
Hx ETOH abuse, last drink 2 weeks ago
PAF on Eliquis, poor compliance, had dose last evening
Weakness/Falls
Hyponatremia, Acute on chronic
Plan:
-Transfuse as ordered
-Clear liquid diet
-Iron studies, B12 and folate levels pending
-Continue Protonix 40 mg IV BID
-Stool for occult blood pending.
-Eliquis is on hold again
-Will follow labs.
-Will plan on EGD after Eliquis washout unless required more emergently.
-
-
Thank you for consultation and allowing me to participate in the patient's care. Please call the machine stone polisher apprentice GI physician during the after hours with any questions or concerns.
[2025-01-13] MEDS: COREG 6.25 MG PO ×2 (10:52→20:56)
[2025-01-13] MEDS: NSS (PRESERVATIVE FREE) 10 ML IV ×2 (10:54→21:02)
[2025-01-13] MEDS: PROTONIX IV 40 MG IV ×2 (10:54→21:02)
[2025-01-13] MEDS: D5/0.9% SODIUM CHLORIDE 1000 IV (10:55)
[2025-01-13 12:24] LABS: Osmolality Serum 263 mOsm/kg (275-300)
[2025-01-13 12:59] LABS: TSH 3.88 uIU/ml (0.47-4.68)
[2025-01-13 13:18] LABS: Vitamin B12 998 pg/ml (239-931)
[2025-01-13] MEDS: DULCOLAX 10 MG PO (14:04)
[2025-01-13] MEDS: NULYTELY SOLUTION 2 LITERS PO ×2 (14:05→19:00)
--- NOTE | 2025-01-13 16:29 | CM ---
Patient seen at bedside
IA completed
LOC changed to inpatient per UR - IMM explained & signed. In chart
CM consult completed-substance abuse-declined BCARES
spoke with son Artur
Patient lives in 2 story home, 2 steps to enter, flight to bed/bath, powder room 1st floor
PLOF: Independent, used cane occasionally
DME: Cane, walker, wheelchair
Denies insecurities
Denies VN/Rehab
PT/OT evals ordered
PCP: does not have at present, used to see Dr. Larissa Guadarrama(retired)
Information given on Residency Program as well as local PCP
Pharmacy: [facility]
PLAN: TBD, continue to follow hospital progress, Await PT/OT evals
[2025-01-13] MEDS: TRILEPTAL 600 MG PO (21:01)
[2025-01-13] MEDS: ASPIR LOW (ENTERIC COATED) 81 MG PO (21:01)
[2025-01-14 07:18] LABS: % Basophils 0.3 % (0-2); % Eosinophils 1.6 % (0-6); % Immature Granulocytes 0.7 % (0-0.5); % Lymphocytes 15.2 % (20.5-51.1); % Monocytes 7.5 % (1.7-9.3); % Neutrophils 74.7 % (42.2-75.2); Absolute Eosinophils 0.1 10^3/uL (0-0.7); Absolute Immature Granulocytes 0.1 10^3/uL (0-0.05); Absolute Lymphocytes 1.3 10^3/uL (1.2-3.4); Absolute Monocytes 0.7 10^3/uL (0.1-0.6); Absolute Neutrophils 6.5 10^3/uL (1.4-6.5); Hematocrit 23.7 % (39.0-52.0); Hemoglobin 8.5 g/dL (13.0-18.0); Mean Corp Hgb Conc. 35.9 g/dL (33.0-37.0); Mean Corpuscular Hgb 29.9 pg (27.0-31.0); Mean Corpuscular Volume 83.5 fL (80.0-94.0); Mean Platelet Volume 8.5 fL (7.4-10.4); Nucleated Red Blood Cells % 0 % (-); Platelet Count 302 10^3/uL (130-400); Red Blood Cell Count 2.84 10^6/uL (4.70-6.10); Red Cell Dist. Width 13.4 % (11.5-14.5); White Blood Cell Count 8.7 10^3/uL (4.8-10.8)
[2025-01-14 07:53] VITALS: BP 144/70
[2025-01-14] MEDS: FOLVITE 1 MG PO (07:56)
[2025-01-14] MEDS: PROTONIX IV 40 MG IV ×2 (07:56→21:47)
[2025-01-14] MEDS: COREG 6.25 MG PO ×2 (07:56→21:46)
[2025-01-14] MEDS: TRILEPTAL 300 MG PO (07:56)
[2025-01-14] MEDS: NSS (PRESERVATIVE FREE) 10 ML IV ×2 (07:57→21:47)
[2025-01-14] MEDS: THIAMINE INJECTION 200 MG IV ×2 (07:57→21:47)
[2025-01-14] MEDS: D5/0.9% SODIUM CHLORIDE 1000 IV (07:58)
[2025-01-14 08:06] LABS: Blood Urea Nitrogen 8 mg/dl (9-20); Calcium 7.7 mg/dl (8.4-10.2); Carbon Dioxide 22 mmol/L (22-30); Chloride 103 mmol/L (98-107); Estimated Creatinine Clearance 100 ml/min; Glucose 84 mg/dl (70-99); Magnesium 1.4 mg/dl (1.6-2.3); Potassium 3.5 mmol/L (3.5-5.1); Sodium 128 mmol/L (135-145); eGFR > 60.00
--- NOTE | 2025-01-14 10:20 | W.PN.GI.CBS2 ---
Today's Communication / Plan
-
More colonic cleanse prep today
NPO at [facility] For EGD/colon tomorrow
Will follow with you
Assessment / Plan
-
70-year-old male with past medical history of seizures, hypertension, carotid stenosis, hyperlipidemia hyponatremia, carotid artery stenosis, A-fib on Eliquis, BPH, PROCTOR, cervical radiculopathy, right carotid endarterectomy, SIADH, DDD, right
hepatic abscess (2019), KEENAN (dx 07/2019), chronic alcoholism who has not been taking his medication regularly presents to the emergency room for evaluation of weakness and confusion. Asked to see patient for Hgb of 6.9 down from 9.0 with reports of
melena in past given patient hx of ETOH abuse. Patient has 'not been consistent' with his medications at home. Patient is poor historian.
Impression:
Anemia, acute on chronic with reports of recent melena.
--> KEENAN in 2019, ddx includes ectasia, ulcer or occult malignancy
Hx ETOH abuse, last drink 2 weeks ago
PAF on Eliquis, poor compliance
Weakness/Falls
Hyponatremia, Acute on chronic
Plan:
- Not clear despite completing prep. Ordered mag citrate 10oz and ducolax
- Clear liquid diet, NPO at [facility] for EGD/colonoscopy tomorrow 01/15
- Continue Protonix 40 mg IV BID
- Eliquis is on hold again
Will follow with you
Subjective
Subjective
Date of Service: January 14, 2025
Denies abd pain, nausea/vomiting. He did complete 4L [place] but per pt last BM was still solid dark stool with liquid.
Objective
Data Reviewed
Laboratory Data:
Laboratory Results
01/14/25 06:21
01/14/25 06:21
Laboratory Results
PT 15.8 Sec (11.4-14.6) H 01/12/25 17:32
INR 1.23 01/12/25 17:32
APTT 42.0 Sec (23.4-35.0) H 01/12/25 17:32
Phosphorus 3.4 mg/dl (2.5-4.5) 01/12/25 17:32
Magnesium 1.4 mg/dl (1.6-2.3) L 01/14/25 06:21
Total Bilirubin 0.9 mg/dl (0.2-1.3) 01/12/25 08:50
AST 30 U/L (17-59) 01/12/25 08:50
ALT 11 U/L (0-50) 01/12/25 08:50
Alkaline Phosphatase 101 U/L (38-126) 01/12/25 08:50
Vital Signs and I&O:
Vital Signs
Temp Pulse Resp BP Pulse Ox
97.8 F 72 16 144/70 100
01/14/25 07:53 01/14/25 07:53 01/14/25 07:53 01/14/25 07:53 01/14/25 09:52
I&O
01/13/25 01/14/25 01/15/25
06:59 06:59 06:59
Intake Total 600 / 600 250 / 250
Output Total 200 / 200
Balance 400 / 400 250 / 250
Physical Exam
Physical Exam
GEN: No acute distress, conversant, pleasant very pale appearing
HEENT: anicteric, extraocular movements intact, clear oropharynx without exudates
GI: soft, non distended, not tender to palpation, normal active bowel sounds, no hepatosplenomegaly
EXT: warm, well perfused, trace edema bilaterally
NEURO: AAOx3, non-focal
[2025-01-14] MEDS: CITROMA 300 ML PO (10:37)
[2025-01-14] MEDS: DULCOLAX 10 MG PO (10:37)
--- NOTE | 2025-01-14 10:38 | W.PN.HOSP.TC ---
Today's Communication/Plan
-
EGD and colonoscopy today
Restart Norvasc
Restart Eliquis when okay with GI
PT OT
If blood pressure stable after EGD we will provide Lasix
BMP in am
Assessment / Plan
Assessment / Plan
70-year-old male presented with generalized weakness and falls he has been progressively declining.Patient usually drinks a lot of alcohol but has not been drinking for the past 2 weeks because he ran out and could not go to the store to replace it.
Patient also states that he has had intermittent black stools and no bowel movements for the past few days. Patient admitted that he has not been taking Eliquis for the past month.
Doppler lower extremity-no evidence of DVT of the right lower extremity
Head CT-no evidence of acute intracranial abnormality
CT chest abdomen pelvis-dense coronary artery calcifications. Significant diffuse vascular calcification. Subtle nondisplaced fracture versus artifact sternum. Thickened bladder and there is stranding of the fat surrounding the bladder findings
suggestive of cystitis. No bowel obstruction or free air. Small amount of presacral edema nonspecific.
EKG-sinus tachycardia nonspecific ST-T changes
MRI of the brain-no acute infarct. Small old white matter infarct involving Xelevia osteophyte from the with minor chronic infarct in the posterior superior right paramidline parietal lobe as well as inferolateral left cerebellar hemisphere.
Atrophy.
Sternum-There is oblique lucency extending through the mid aspect of the sternal body which appears to correlate with the abnormality seen on prior CT and likely represents a subacute nondisplaced fracture.
On examination awake alert
Pleasant
Cardiovascular system S1-S2 appreciated
Chest clear to auscultation
Abdomen soft and mild epigastric tenderness
No pedal edema
# Acute anemia
Possible subacute blood loss from GI bleed given off-and-on melena
Continue PPI
Transfused 1 unit of blood 01/13/2025
Informed blood consent obtained from patient-I also discussed this with patient's son Artur
Patient is for EGD And colonoscopy today
GI evaluation appreciated
# Acute on chronic hyponatremia
Check urine osmolality and urine sodium
Likely SIADH
Lasix after EGD today
# Fall/loss of balance of unclear cause-noncompliance with Eliquis.
MRI of the brain-no acute infarct.
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
PT eval.
# Hypomagnesemia-replace
# Alcoholism-has not had a drink for 2 weeks
Replace thiamine
# Hypertension-hold clonidine, Aldactone. Continue Coreg . Restart Norvasc at 5 mg ( takes 10 mg at home) 01/14/25.
# Hyperlipidemia-Unclear why patient is not on a statin.
# Coronary artery calcification-needs outpatient follow-up. Continue ASA. Unclear why patient is not on a statin.
# History of carotid artery with carotid endarterectomy right side
# Subacute nondisplaced fracture sternum-no pericardial effusion mentioned on the CT
# Paroxysmal atrial fibrillation-hold Eliquis with bleeding restart Eliquis when okay from GI standpoint,. Continue Coreg
# Seizure-continue oxcarbazepine
# History of stroke-hold Eliquis. Unclear why patient is not on statin
# History of right hepatic abscess 2019
# Noncompliance with medicines
# Ex-smoker
# Daily alcohol use-has not used for the past 2 weeks. Thiamine replacement
# DVT prophylaxis-SCDs
# Full code
Discussed with nursing
Son Artur updated 01/13/25
Part of this note was created using voice recognition system. Occasional wrong word or��sound alike� substitutions may have inadvertently occurred due to the inherent limitations of voice recognition software. If noted kindly bring it to my
attention for correction.
Anticipated Discharge: 24 - 48 hours
Subjective/Interval History
-
Date of Service: January 14, 2025
Objective Data
-
Labs:
Laboratory Results
01/14/25
06:21
WBC 8.7
Hgb 8.5 L D
Hct 23.7 L
Plt Count 302
Sodium 128 L
Potassium 3.5
Chloride 103
Carbon Dioxide 22
BUN 8 L
Creatinine 0.5 L
Glucose 84
Calcium 7.7 L
Vital Signs:
Vital Signs
Temp Pulse Resp BP Pulse Ox
97.8 F 72 16 144/70 100
01/14/25 07:53 01/14/25 07:53 01/14/25 07:53 01/14/25 07:53 01/14/25 09:52
I&O
01/13/25 01/14/25 01/15/25
06:59 06:59 06:59
Intake Total 600 / 600 250 / 250
Output Total 200 / 200
Balance 400 / 400 250 / 250
[2025-01-14 10:56] VITALS: BP 155/67; PULSE 70; O2SAT 100
[2025-01-14] MEDS: NORVASC 5 MG PO (10:57)
[2025-01-14] MEDS: MAGNESIUM SULFATE 50 IV (10:57)
[2025-01-14 12:55] LABS: Osmolality Urine 341 mOsm/kg (300-900)
[2025-01-14 13:01] LABS: Amphetamines Negative (Negative); Barbiturates Negative (Negative); Benzodiazepines Negative (Negative); Buprenorphine Negative (Negative); Cocaine Negative (Negative); Marijuana Negative (Negative); Methadone Negative (Negative); Methamphetamines Negative (Negative); Opiates Negative (Negative); Phencyclidine Negative (Negative); Tricyclic Antidepressants Negative (Negative)
--- NOTE | 2025-01-14 13:04 | CM ---
Patient seen at bedside
Clear liquid diet, NPO at DC for EGD/colonoscopy tomorrow 01/15
PT rec SNF
discussed options with patient and son Swapnil
prefer [facility] at this time
referral placed in [facility]
PLAN: SNF, pending bed availability when stable
[2025-01-14 14:13] VITALS: BP 125/61; PULSE 71
[2025-01-14 14:13] LABS: Vitamin D, 25-OH*** 38.3 ng/mL (30-80)
[2025-01-14 14:22] LABS: Urine Sodium 88 mmol/L (30-90)
[2025-01-14 15:22] VITALS: BP 125/74
[2025-01-14] MEDS: NULYTELY SOLUTION 2 LITERS PO (17:49)
[2025-01-14] MEDS: TRILEPTAL 600 MG PO (21:46)
[2025-01-14] MEDS: ASPIR LOW (ENTERIC COATED) 81 MG PO (21:46)
[2025-01-14] MEDS: ZOFRAN 4 MG IV (23:03)
[2025-01-14 23:12] VITALS: BP 116/84
[2025-01-15 06:56] LABS: Hemoglobin 8.6 g/dL (13.0-18.0); Mean Corp Hgb Conc. 35.8 g/dL (33.0-37.0); Mean Corpuscular Hgb 30.5 pg (27.0-31.0); Mean Corpuscular Volume 85.1 fL (80.0-94.0); Mean Platelet Volume 8.7 fL (7.4-10.4); Platelet Count 361 10^3/uL (130-400); Red Blood Cell Count 2.82 10^6/uL (4.70-6.10); Red Cell Dist. Width 13.5 % (11.5-14.5); White Blood Cell Count 8.2 10^3/uL (4.8-10.8)
[2025-01-15 07:23] LABS: Blood Urea Nitrogen 3 mg/dl (9-20); Calcium 7.8 mg/dl (8.4-10.2); Carbon Dioxide 19 mmol/L (22-30); Chloride 104 mmol/L (98-107); Estimated Creatinine Clearance 100 ml/min; Glucose 76 mg/dl (70-99); Magnesium 1.6 mg/dl (1.6-2.3); Potassium 3.9 mmol/L (3.5-5.1); Sodium 126 mmol/L (135-145); eGFR > 60.00
[2025-01-15 08:14] VITALS: BP 168/68
--- NOTE | 2025-01-15 08:46 | W.PN.HOSP.TC ---
Today's Communication/Plan
-
for EGD/Colonoscopy today
dc planning to SNF
Assessment / Plan
Assessment / Plan
70-year-old male presented with generalized weakness and falls he has been progressively declining.Patient usually drinks a lot of alcohol but has not been drinking for the past 2 weeks because he ran out and could not go to the store to replace it.
Patient also states that he has had intermittent black stools and no bowel movements for the past few days. Patient admitted that he has not been taking Eliquis for the past month.
Doppler lower extremity-no evidence of DVT of the right lower extremity
Head CT-no evidence of acute intracranial abnormality
CT chest abdomen pelvis-dense coronary artery calcifications. Significant diffuse vascular calcification. Subtle nondisplaced fracture versus artifact sternum. Thickened bladder and there is stranding of the fat surrounding the bladder findings
suggestive of cystitis. No bowel obstruction or free air. Small amount of presacral edema nonspecific.
EKG-sinus tachycardia nonspecific ST-T changes
MRI of the brain-no acute infarct. Small old white matter infarct involving Xelevia osteophyte from the with minor chronic infarct in the posterior superior right paramidline parietal lobe as well as inferolateral left cerebellar hemisphere.
Atrophy.
Sternum-There is oblique lucency extending through the mid aspect of the sternal body which appears to correlate with the abnormality seen on prior CT and likely represents a subacute nondisplaced fracture.
On examination awake alert
Pleasant
Cardiovascular system S1-S2 appreciated
Chest clear to auscultation
Abdomen soft and mild epigastric tenderness
No pedal edema
Assessment:
acute symptomatic anemia
Possible subacute blood loss from GI bleed given off-and-on melena
- s/p 1 unit PRBC
- continue PPI
- GI following
- for EGD/Colon today
Acute on chronic hyponatremia
- suspect SIADH and also low solute intake in setting of Alcoholism
- IV Lasix post-EGD; Fluid restriction as well
Fall/loss of balance of unclear cause-noncompliance with Eliquis.
- MRI of the brain-no acute infarct.
- Possibly may have alcohol induced peripheral neuropathy
- PT/OT - SNF recommended
Hypomagnesemia
- replace prn
Alcoholism-has not had a drink for 2 weeks
- Replace thiamine
Essential Hypertension
- hold clonidine, Aldactone. Continue Coreg. Restart Norvasc at 5 mg (takes 10 mg at home) 01/14/25.
Hyperlipidemia
- Unclear why patient is not on a statin. can prescribe at dc.
Coronary artery calcification
- needs outpatient follow-up. Continue ASA. Unclear why patient is not on a statin.
History of carotid artery with carotid endarterectomy right side
Subacute nondisplaced fracture sternum-no pericardial effusion mentioned on the CT
Paroxysmal atrial fibrillation
- hold Eliquis pending GI w/u
- continue Coreg
Seizure
- continue oxcarbazepine
History of stroke
- hold Eliquis. Unclear why patient is not on statin
History of right hepatic abscess 2019
Noncompliance with medicines
Ex-smoker
Daily alcohol use-has not used for the past 2 weeks. Thiamine replacement
DVT prophylaxis: SCDs
Code: Full
Anticipated Discharge: 24 - 48 hours
Subjective/Interval History
-
Date of Service: January 15, 2025
no complaints
Objective Data
-
Labs:
Laboratory Results
01/15/25
06:20
WBC 8.2
Hgb 8.6 L
Hct 24.0 L
Plt Count 361
Sodium 126 L
Potassium 3.9
Chloride 104
Carbon Dioxide 19 L
BUN 3 L
Creatinine 0.5 L
Glucose 76
Calcium 7.8 L
Vital Signs:
Vital Signs
Temp Pulse Resp BP Pulse Ox
98 F 71 14 168/68 98
01/15/25 08:14 01/15/25 08:14 01/15/25 08:14 01/15/25 08:14 01/15/25 08:14
I&O
01/14/25 01/15/25 01/16/25
06:59 06:59 06:59
Intake Total 250 / 250 720 / 720
Output Total 525 / 525
Balance 250 / 250 195 / 195
Physical Exam
-
General: No Apparent Distress
HEENT: Normocephalic and Atraumatic
Respiratory: Negative Wheezes or Rales
Cardiac: Regular Rhythm and S1/S2
GI: Soft and Nontender
Musculoskeletal: No Edema
Neuro: AO x 3
Psych: Calm
Data Reviewed
-
Total Time Spent with Patient (in minutes): 41
Labs: Labs Reviewed by me
[2025-01-15] MEDS: TRILEPTAL 300 MG PO (09:00)
[2025-01-15] MEDS: PROTONIX IV 40 MG IV (09:01)
[2025-01-15] MEDS: THIAMINE INJECTION 200 MG IV (09:01)
[2025-01-15] MEDS: NORVASC 5 MG PO (09:01)
[2025-01-15] MEDS: FOLVITE 1 MG PO (09:01)
[2025-01-15] MEDS: COREG 6.25 MG PO (09:02)
[2025-01-15] MEDS: NSS (PRESERVATIVE FREE) 10 ML IV (09:02)
[2025-01-15 11:09] VITALS: BP 108/51
[2025-01-15 11:15] VITALS: BP 132/62
[2025-01-15 11:30] VITALS: BP 133/48
[2025-01-15 14:07] LABS: Haptoglobin 145 mg/dL (30-200)
[2025-01-15] MEDS: FERRLECIT 110 MG IV (15:24)
[2025-01-15 15:48] VITALS: BP 125/58
[2025-01-15] MEDS: LASIX 20 MG IV (17:33)
[2025-01-15] MEDS: COREG PO (21:08)
[2025-01-15] MEDS: TRILEPTAL 600 MG PO (21:10)
[2025-01-15] MEDS: PROTONIX 40 MG PO (21:10)
[2025-01-15] MEDS: ASPIR LOW (ENTERIC COATED) 81 MG PO (21:10)
[2025-01-15] MEDS: VITAMIN B1 100 MG PO (21:10)
--- NOTE | 2025-01-15 21:56 | PTCARENOTE ---
patient was offered oral care multiple times, but they refused. Patient stated they would prefer to do it in the morning.
[2025-01-15 23:00] VITALS: BP 132/62
[2025-01-16 03:00] VITALS: BP 105/75
[2025-01-16 07:36] VITALS: BP 133/69
[2025-01-16 08:14] LABS: Hematocrit 25.6 % (39.0-52.0); Hemoglobin 9.1 g/dL (13.0-18.0); Mean Corp Hgb Conc. 35.5 g/dL (33.0-37.0); Mean Corpuscular Volume 84.5 fL (80.0-94.0); Mean Platelet Volume 8.4 fL (7.4-10.4); Platelet Count 389 10^3/uL (130-400); Red Blood Cell Count 3.03 10^6/uL (4.70-6.10); White Blood Cell Count 7.9 10^3/uL (4.8-10.8)
[2025-01-16 08:39] LABS: Blood Urea Nitrogen 2 mg/dl (9-20); Calcium 7.9 mg/dl (8.4-10.2); Carbon Dioxide 19 mmol/L (22-30); Chloride 104 mmol/L (98-107); Estimated Creatinine Clearance 100 ml/min; Glucose 92 mg/dl (70-99); Potassium 3.5 mmol/L (3.5-5.1); Sodium 130 mmol/L (135-145); eGFR > 60.00
[2025-01-16] MEDS: COREG 6.25 MG PO (09:08)
[2025-01-16] MEDS: PROTONIX 40 MG PO (09:09)
[2025-01-16] MEDS: VITAMIN B1 100 MG PO (09:09)
[2025-01-16] MEDS: NORVASC 5 MG PO (09:09)
[2025-01-16] MEDS: FOLVITE 1 MG PO (09:09)
[2025-01-16] MEDS: TRILEPTAL 300 MG PO (09:09)
--- NOTE | 2025-01-16 10:26 | W.PN.HOSP.TC ---
Today's Communication/Plan
-
dc to SNF
Assessment / Plan
Assessment / Plan
Assessment:
acute symptomatic anemia
Possible subacute blood loss from GI bleed given off-and-on melena
- s/p 1 unit PRBC; hb 9.1 today
- IV iron while in patient
- continue PPI
- s/p EGD 01/15: gastritis
- s/p Colonoscopy with 3 polyps removed
- OP GI f/u with biopsy results
Acute on chronic hyponatremia
- suspect SIADH and also low solute intake in setting of Alcoholism
- Na 130 after OFR and IV Lasix; continue OFR at discharge
Fall/loss of balance of unclear cause-noncompliance with Eliquis.
- MRI of the brain-no acute infarct.
- Possibly may have alcohol induced peripheral neuropathy
- PT/OT - SNF dc today
Hypomagnesemia
- replace prn
Alcoholism-has not had a drink for 2 weeks
- Replace thiamine
Essential Hypertension
- hold clonidine, Aldactone. Continue Coreg. Restart Norvasc at 5 mg (takes 10 mg at home) 01/14/25.
Hyperlipidemia
- Unclear why patient is not on a statin. can prescribe at id.
Coronary artery calcification
- needs outpatient follow-up. Continue ASA. Unclear why patient is not on a statin.
History of carotid artery with carotid endarterectomy right side
Subacute nondisplaced fracture sternum-no pericardial effusion mentioned on the CT
Paroxysmal atrial fibrillation
- resume Eliquis in 24 hours
- continue Coreg
Seizure
- continue oxcarbazepine
History of stroke
- Eliquis as above. Unclear why patient is not on statin
History of right hepatic abscess 2019
Noncompliance with medicines
Ex-smoker
Daily alcohol use-has not used for the past 2 weeks. Thiamine replacement
DVT prophylaxis: SCDs
Code: Full
More than 30 minutes spent in discharge including
Final examination of the patient
Summarizing hospital stay
Instructions for continuing care to all relevant caregivers
Preparation of discharge records, prescriptions, and referral forms
Total time spent (in minutes): 41
Anticipated Discharge: Today
Subjective/Interval History
-
Date of Service: January 16, 2025
resting comfortably no complaints at present
Objective Data
-
Labs:
Laboratory Results
01/16/25
07:08
WBC 7.9
Hgb 9.1 L
Hct 25.6 L
Plt Count 389
Sodium 130 L
Potassium 3.5
Chloride 104
Carbon Dioxide 19 L
BUN 2 L
Creatinine 0.6 L
Glucose 92
Calcium 7.9 L
Vital Signs:
Vital Signs
Temp Pulse Resp BP Pulse Ox
97.6 F 80 14 133/69 95
01/16/25 07:36 01/16/25 07:36 01/16/25 07:36 01/16/25 07:36 01/16/25 07:36
I&O
01/15/25 01/16/25 01/17/25
06:59 06:59 06:59
Intake Total 720 / 720 2480 / 2480
Output Total 525 / 525 1425 / 1425
Balance 195 / 195 1055 / 1055
Physical Exam
-
General: No Apparent Distress
HEENT: Normocephalic and Atraumatic
Respiratory: Negative Wheezes
Cardiac: Regular Rhythm and S1/S2
GI: Soft and Nontender
Genito-urinary: No Costovertebral Tender
Neuro: AO x 3
Hematologic / Lymphatic: No Lymphadenopathy
Psych: Calm
Data Reviewed
-
Total Time Spent with Patient (in minutes): 41
Labs: Labs Reviewed by me
--- NOTE | 2025-01-16 10:35 | CM ---
Patient seen at bedside
IMM explained & signed. In chart
Discharge today to [facility]-Spoke with Donna liaison bed available today
patient agreeable, spoke with son Artur agreedinora
PLAN: [facility]
Report #: [phone]
Fax #: [phone]
transportation forms on chart, 4:30pm transport - Donna notified, son notified
--- NOTE | 2025-01-16 10:36 | W.DS.TRANS ---
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
-
Discharge Instructions:
Discharge Diagnosis/Procedures acute symptomatic anemia s/p 1 unit PRBC and EGD
/Colonoscopy 01/15, hyponatremia
Diet Restrict fluids to 48 oz
Activity As tolerated
Blood Work CBC and BMP in 1 week
Other Services PT,OT
Instructions:
Stand-Alone Forms:
Changes to Home Medications: Yes
Discharge Medications:
DC Medications w/original date entered in [employer]
oxcarbazepine 600 mg tablet 600 mg PO HS Antiseizure Agent 08/04/19
oxcarbazepine 300 mg tablet 300 mg PO DAILY #60 tabs 08/14/19
furosemide 40 mg tablet 20 mg PO DAILY Fluid Retention/Swelling 01/06/25
coQ10 (ubiquinol) 100 mg capsule 100 mg PO DAILY Supplement 01/12/25
amlodipine 5 mg tablet 5 mg PO DAILY #30 tabs 01/16/25
apixaban 5 mg tablet (Eliquis) 5 mg PO BID Blood Clot Prevention/Tx #60 tabs 01/16/25
carvedilol 6.25 mg tablet 6.25 mg PO BID #60 tabs 01/16/25
folic acid 1 mg tablet 1 mg PO DAILY #100 tabs 01/16/25
pantoprazole 40 mg tablet,delayed release 40 mg PO DIRECTED #60 tabs 01/16/25
thiamine mononitrate (vit B1) 100 mg tablet 100 mg PO BID #100 tabs 01/16/25
Home Medication Changes
Amlodipine to 5mg, Carvedilol to 6.25mg BID. Clonidine and Aldactone stopped.
Pending Results: No
Total time spent discharging patient (in min): 41
--- NOTE | 2025-01-16 11:59 | W.PN.GI.CBS2 ---
Today's Communication / Plan
-
01/16/25 - ok to discharge from GI perspective. Will call him with biopsies and GI follow up within 3 months in our office and 2 wks with PCP
Assessment / Plan
-
70-year-old male with past medical history of seizures, hypertension, carotid stenosis, hyperlipidemia hyponatremia, carotid artery stenosis, A-fib on Eliquis, BPH, PROCTOR, cervical radiculopathy, right carotid endarterectomy, SIADH, DDD, right
hepatic abscess (2019), KEENAN (dx 07/2019), chronic alcoholism who has not been taking his medication regularly presents to the emergency room for evaluation of weakness and confusion. Asked to see patient for Hgb of 6.9 down from 9.0 with reports of
melena in past given patient hx of ETOH abuse. Patient has 'not been consistent' with his medications at home. Patient is poor historian.
Impression:
Anemia, acute on chronic with reports questionable dark stools
--> KEENAN in 2019, ddx includes ectasia, ulcer or occult malignancy
-- currently iron studies are not KEENAN (ferritin >900)
Hx ETOH abuse, last drink 2 weeks ago
PAF on Eliquis, poor compliance - likely none in a month
Weakness/Falls
Hyponatremia, Acute on chronic
EGD 01/15/25 - likely alcoholic gastritis with erosions, mild duodenal flattening - biopsies taken and pending
Colonoscopy 01/15/25 - indication heme+stool with anemia: three small polyps removed, pandiverticulosis
01/16/25 - ok to discharge from GI perspective. Will call him with biopsies and GI follow up within 3 months in our office and 2 wks with PCP
Subjective
Subjective
Date of Service: January 16, 2025
Patient doing well. Eating well
Objective
Data Reviewed
Laboratory Data:
Laboratory Results
01/16/25 07:08
01/16/25 07:08
Laboratory Results
PT 15.8 Sec (11.4-14.6) H 01/12/25 17:32
INR 1.23 01/12/25 17:32
APTT 42.0 Sec (23.4-35.0) H 01/12/25 17:32
Phosphorus 3.4 mg/dl (2.5-4.5) 01/12/25 17:32
Magnesium 1.6 mg/dl (1.6-2.3) 01/15/25 06:20
Total Bilirubin 0.9 mg/dl (0.2-1.3) 01/12/25 08:50
AST 30 U/L (17-59) 01/12/25 08:50
ALT 11 U/L (0-50) 01/12/25 08:50
Alkaline Phosphatase 101 U/L (38-126) 01/12/25 08:50
Vital Signs and I&O:
Vital Signs
Temp Pulse Resp BP Pulse Ox
97.6 F 80 14 133/69 95
01/16/25 07:36 01/16/25 07:36 01/16/25 07:36 01/16/25 07:36 01/16/25 07:36
I&O
01/15/25 01/16/25 01/17/25
06:59 06:59 06:59
Intake Total 720 / 720 2480 / 2480
Output Total 525 / 525 1425 / 1425
Balance 195 / 195 1055 / 1055
Physical Exam
Physical Exam
HEENT: Anicteric
GI: Soft, Non Distended and Non Tender
[2025-01-16] MEDS: FERRLECIT 110 MG IV (13:12)
[2025-01-16 13:56] VITALS: BP 127/71
== END 2025-01-16 17:45 | DRG 378 ==
LOC: 3 WEST ACU 08:26
PROVIDERS: Hospitalist; Internal Medicine; Nurse Practitioner Family; Registered Nurse; ADMITTING PHYSICIAN Internal Medicine; ATTENDING PHYSICIAN Internal Medicine; CONSULT PHYSICIAN Internal Medicine Gastroenterology; EMERGENCY PHYSICIAN Emergency Medicine
PROC: 30233N1 Transfusion of Nonautologous Red Blood Cells into Peripheral Vein, Percutaneous Approach (ICD-10-PCS; 2025-01-13)
PROC: 0DBP8ZX Excision of Rectum, Via Natural or Artificial Opening Endoscopic, Diagnostic (ICD-10-PCS; 2025-01-15)
PROC: 0DBL8ZX Excision of Transverse Colon, Via Natural or Artificial Opening Endoscopic, Diagnostic (ICD-10-PCS; 2025-01-15)
PROC: 0DB98ZX Excision of Duodenum, Via Natural or Artificial Opening Endoscopic, Diagnostic (ICD-10-PCS; 2025-01-15)
DX: K29.21 Alcoholic gastritis with bleeding (principal); D62 Acute posthemorrhagic anemia; E22.2 Syndrome of inappropriate secretion of antidiuretic hormone; G40.89 Other seizures; Z11.52 Encounter for screening for COVID-19; E86.0 Dehydration; I10 Essential (primary) hypertension; Z79.899 Other long term (current) drug therapy; E78.00 Pure hypercholesterolemia, unspecified; I48.0 Paroxysmal atrial fibrillation; Z79.01 Long term (current) use of anticoagulants; E83.42 Hypomagnesemia; F10.20 Alcohol dependence, uncomplicated; I25.10 Atherosclerotic heart disease of native coronary artery without angina pectoris; Z91.148 Patient's other noncompliance with medication regimen for other reason; Z87.891 Personal history of nicotine dependence; K44.9 Diaphragmatic hernia without obstruction or gangrene; K29.20 Alcoholic gastritis without bleeding; K31.7 Polyp of stomach and duodenum; K31.89 Other diseases of stomach and duodenum; K22.89 Other specified disease of esophagus; R63.4 Abnormal weight loss; D12.3 Benign neoplasm of transverse colon; D12.8 Benign neoplasm of rectum
CPT/HCPCS: 88305; 70450; 70551; 71120; 71260; 72125; 74177; 80048; 80053; 80306; 81003; 81015; 82010; 82077; 82306; 82533; 82550; 82570; 82607; 82728; 82977; 83010; 83540; 83550; 83615; 83735; 83930; 83935; 84100; 84156; 84300; 84443; 84484; 85014; 85018; 85025; 85027; 85610; 85730; 86850; 86900; 86901; 86920; 87040; 87086; 87502; 87811; 88342; 93005; 93971; 96361; 96374; 97163; 97167; 99285; J2916; P9016; Q9967